=== PATIENT | male | born 1990 | race Caucasian/White ===

== ENCOUNTER 2016-05-18 20:08 | Emergency (ER) | payer OTHER ==
[2016-05-18 20:30] VITALS: O2SAT 98
[2016-05-18] MEDS ORDERED: METOCLOPRAMIDE 10 MG/2 ML VIAL IVP ONE (21:25)
[2016-05-18] MEDS ORDERED: KETOROLAC 30 MG/1 ML SDV IVP ONE (21:25)
[2016-05-18] MEDS ORDERED: NS 1,000 ML IV ONE (21:25)
--- NOTE | 2016-05-18 21:25 | EDPHY ---
H & P Time Seen by Provider: 05/18/16 20:41 HPI/ROS: Chief complaint. Headache HPI. Patient is a 25-year-old male with history of migraine headaches presents with typical migraine that began about 2 hours ago. He has visual aura that he describes as spots at onset. Subsequently he developed a headache and nausea vomiting. Denies focal weakness paresthesias. No head injury or recent illness. He says maybe from a cacao drink this evening. There is a family history of migraines in his brother has quite frequent migraines. Patient's last migraine was about 2 years ago. He denies focal weakness or paresthesias ROS Constitutional. no fever/chills, no weakness Eyes. no problems with vision ENT. no sore throat, no nasal drainage Cardiovascular. no chest pain Respiratory. no shortness of breath, no cough Abdominal. no abdominal pain, no nausea/vomiting, no diarrhea . no problems urinating MS. no calf pain/swelling, no neck/back pain, no joint pain Skin. no rash Lymph. no swollen glands Neuro. Headache Past Medical/Surgical History: Healthy though history of migraines in attention deficit hyperactivity disorder Social History: Single, daily smoker, no alcohol Smoking Status: Light smoker Physical Exam: General Appearance: Alert well-developed male moderate distress vital signs are stable Eyes: Pupils equal and round no pallor or injection. ENT, Mouth: Mucous membranes are moist. Respiratory: There are no retractions, lungs are clear to auscultation. Cardiovascular: Regular rate and rhythm. Gastrointestinal: Abdomen is soft and nontender, no masses, bowel sounds normal. Neurological: Awake and alert, sensory and motor exams grossly normal. Skin: Warm and dry, no rashes. Musculoskeletal: Neck is supple nontender. Extremities symmetrical, full range of motion. Psychiatric: Patient is oriented X 3, there is no agitation. Constitutional: Initial Vital Signs Temperature (C) 36.5 C 05/18/16 20:27 Heart Rate 56 L 05/18/16 20:27 Respiratory Rate 18 05/18/16 20:27 Blood Pressure 109/71 05/18/16 20:27 O2 Sat (%) 98 05/18/16 20:27 O2 Delivery Mode Room Air Allergies/Adverse Reactions: No Known Allergies Allergy (Verified 05/18/16 20:30) Home Medications: Medication Instructions Recorded Adderall 10 MG (*) 05/18/16 Bupropion HBr 05/18/16 Medical Decision Making Procedures: IV normal saline with 1 L given. Patient is given Toradol, Reglan, Benadryl intravenously ED Course/Re-evaluation: Re-evaluation at 10:00 p.m. and patient has no headache now. He feels well his symptoms are completely resolved. He is conversational and normal and neurologically intact. The patient and I discussed treatment plan including criteria for return importance of follow-up further evaluation. He expresses understanding and agreed Differential Diagnosis: I considered migraine, meningitis, intracranial bleeding, CVA - Data Points Medications Given: Discontinued Medications Diphenhydramine HCl (Benadryl Injection) 25 mg IVP EDNOW ONE Stop: 05/18/16 21:26 Last Admin: 05/18/16 21:46 Dose: 25 mg Sodium Chloride (Ns) 1,000 mls @ 0 mls/hr IV ONCE ONE PRN Reason: Wide Open Stop: 05/18/16 21:26 Last Admin: 05/18/16 21:47 Dose: 1,000 mls Ketorolac Tromethamine (Toradol) 30 mg IVP EDNOW ONE Stop: 05/18/16 21:26 Last Admin: 05/18/16 21:46 Dose: 30 mg Metoclopramide HCl (Reglan Injection) 10 mg IVP EDNOW ONE Stop: 05/18/16 21:26 Last Admin: 05/18/16 21:46 Dose: 10 mg Departure - Departure Disposition: Home, Routine, Self-Care Clinical Impression: Migraine headache Qualifiers: Migraine type: with aura Status migrainosus presence: without status migrainosus Intractability: not intractable Qualified Code(s): G43.109 - Migraine with aura, not intractable, without status migrainosus Condition: Good Instructions: Migraine Headache (ED) Additional Instructions: Return for worsening symptoms. Follow up with [facility] for further management of your migraines Referrals: DR MATTHEW [Other] - As per Instructions
[2016-05-18 21:48] VITALS: PULSE 69; RESP 16; TEMP 97.9
[2016-05-18 22:12] VITALS: BP 108/59
== END 2016-05-18 22:11 | disposition home or self-care (01) ==
DX: G43.109 Migraine with aura, not intractable, without status migrainosus (principal); F17.200 Nicotine dependence, unspecified, uncomplicated
CPT/HCPCS: 96374; J1200; J1885; J2765

== ENCOUNTER 2016-07-13 20:16 | Emergency (ER) | payer OTHER ==
--- NOTE | 2016-07-13 21:52 | EDPHY ---
H & P Smoking Status: Light smoker Time Seen by Provider: 07/13/16 21:40 HPI/ROS: CHIEF COMPLAINT: Dental pain HISTORY OF PRESENT ILLNESS: 25-year-old male presents to the emergency department with left lower dental pain that began abruptly this evening. The patient states that he lost part of the filling and developed severe pain. He denies any other known trauma or injury. He denies dysphagia. Denies facial swelling. He has taken ibuprofen without relief. He does not have a dentist. ROS: Denies dysphagia, facial swelling, fevers, chills, sublingual swelling. ( Tamera Lomas) Past Medical/Surgical History: Migraine headaches, attention deficit hyperactivity disorder (Tamera Lomas) Social History: Single (Tamera Lomas) Physical Exam: On examination patient has no facial swelling. Afebrile and nontoxic-appearing. Teeth appear to be in good repair. His left lower 1st molar has an amalgam filling the that is broken off. No gingival or buccal mucosal swelling. No evidence of abscess. No sublingual swelling. No facial swelling. Neck is supple without lymphadenopathy. (Tamera Lomas) Constitutional: Initial Vital Signs Heart Rate 102 H 07/13/16 20:18 Respiratory Rate 19 07/13/16 20:18 Blood Pressure 131/92 H 07/13/16 20:18 O2 Sat (%) 97 07/13/16 20:18 O2 Delivery Mode Room Air Allergies/Adverse Reactions: No Known Allergies Allergy (Verified 05/18/16 20:30) Home Medications: Medication Instructions Recorded Adderall 10 MG (*) 05/18/16 Bupropion HBr 05/18/16 Penicillin V Potassium 500 mg PO TID #30 tablet 07/13/16 MDM/Departure - MDM Medications Given: Discontinued Medications Hydrocodone Bitart/Acetaminophen ([place] 5/325mg Prepack#6) 1 btl TAKEHOME EDNOW ONE Stop: 07/13/16 21:56 Last Admin: 07/13/16 22:02 Dose: 1 btl Penicillin V Potassium (Pen Vk 250 Mg Prepack#6) 1 btl TAKEHOME EDNOW ONE PRN Reason: Protocol Stop: 07/13/16 21:56 Last Admin: 07/13/16 22:07 Dose: 1 btl ED Course/Re-evaluation: 25-year-old male presents to the emergency department with dental pain. Clinically I think this patient just has a fractured filling. No evidence of abscess. He will be started on penicillin. He was given hydrocodone take-home pack for severe pain. He was instructed follow up with a dentist as soon as possible. (Tamera Lomas) The patient was evaluated and managed by the physician assistant grocery. I have reviewed this chart and I agree with the findings and plan of care as documented , as indicated by my signature. I am the secondary supervising physician. ( Loulou Lozano) - Depart Disposition: Home, Routine, Self-Care Clinical Impression: Pain, dental Condition: Good Instructions: Penicillin V (By mouth), Hydrocodone/Acetaminophen (By mouth), Toothache (ED) Additional Instructions: Penicillin 3 times daily for 10 days to prevent infection. Ibuprofen 600 mg every 8 hours as needed for pain. Hydrocodone for severe pain as directed. Follow up with a dentist as soon as possible. Prescriptions: Penicillin V Potassium 500 mg PO TID #30 tablet Referrals: [facility] [Outside] - As per Instructions [facility] [Outside] - As per Instructions [facility] [Outside] - As per Instructions Dental [address] [Outside] - As per Instructions Dental [facility] [Outside] - As per Instructions
[2016-07-13] MEDS ORDERED: PENICILLIN VK 250MG PREPACK#6 BTL TAKEHOME ONE (21:55)
[2016-07-13] MEDS ORDERED: HYDROCOD/APAP 5/325 PREPACK#6 BTL TAKEHOME ONE (21:55)
[2016-07-13 22:20] VITALS: BP 104/84; PULSE 60; RESP 17; TEMP 98.8; O2SAT 95
== END 2016-07-13 22:20 | disposition home or self-care (01) ==
DX: K08.89 Other specified disorders of teeth and supporting structures (principal); F17.200 Nicotine dependence, unspecified, uncomplicated

== ENCOUNTER 2017-05-16 01:56 | Emergency (ER) | payer OTHER ==
[2017-05-16 02:04] VITALS: BP 107/66; PULSE 93; RESP 16; TEMP 98.1; O2SAT 95
--- NOTE | 2017-05-16 02:07 | EDPHY ---
H & P Stated Complaint: skin on scrotum is peeling Time Seen by Provider: 05/16/17 02:00 HPI/ROS: HPI CHIEF COMPLAINT: Skin peeling on the scrotum x2 weeks HISTORY OF PRESENT ILLNESS: This patient is a 26-year-old male, he is otherwise healthy denies any significant medical history however did have remote history 2 years ago of a varicocele surgery. He believes to be a left side. Patient presents emergency room with 2 weeks of dry skin to his scrotum and skin peeling. Decided come to the emergency room tonight as the skin was cracking and some bleeding occurred and he became concerned. He denies any significant testicular pain. He has been putting a large amount of lotion on it. Denies trauma to his scrotum or scrotal or testicular trauma. Denies fever. Denies urinary symptoms. Denies STD exposure. Past Medical History: No significant medical history Past Surgical History: Surgical history consistent for varicella surgery Social History: Denies drugs alcohol tobacco. Family History: Noncontributory ROS REVIEW OF SYSTEMS: A comprehensive 10 point review of systems is otherwise negative aside from elements mentioned in the history of present illness. Exam Constitutional triage nursing summary reviewed, vital signs reviewed, awake/ alert. Eyes normal conjunctivae and sclera, EOMI, PERRLA. HENT normal inspection, atraumatic, moist mucus membranes, no epistaxis, neck supple/ no meningismus, no raccoon eyes. Respiratory clear to auscultation bilaterally, normal breath sounds, no respiratory distress, no wheezing. Cardiovascular rate normal, regular rhythm, no murmur, no edema, distal pulses normal. Gastrointestinal soft, non-tender, no rebound, no guarding, normal bowel sounds, no distension, no pulsatile mass. Genitourinary exam: ALENA RN at bedside, no testicular pain on palpation, left testicle rides low, right testicle is higher up, the scrotum skin does not show any signs of cellulitis or infection that I can see, there is extensive dry skin to the scrotum, and the lower aspect of the scrotum is thickened. Cracked. Musculoskeletal no midline vertebral tenderness, full range of motion, no calf swelling, no tenderness of extremities, no meningismus, good pulses, neurovascularly intact. Skin pink, warm, & dry, no rash, skin atraumatic. Neurologic awake, alert and oriented x 3, AAOx3, moves all 4 extremities equally, motor intact, sensory intact, CN II-XII intact, normal cerebellar, normal vision, normal speech. Psychiatric normal mood/affect. Heme/Lymph/Immune no lymphadenopathy. Differential Diagnosis: Includes but is not limited to scrotum cellulitis, dry screen of the scrotum, abnormal thickened skin of the scrotum, testicular cancer Medical Decision Making: Plan for this patient ultrasound of the scrotum to evaluate this area. Additionally check UA. Re-evaluate. Re-evaluation: [id number]: Ultrasound of the scrotum shows normal testicle blood flow. No evidence of torsion. There is an area of thickened skin of the scrotum where this area of concern is a could be cellulitis. Will place on Keflex and Bactrim for scrotal cellulitis. There is no evidence of Bubba gangrene at this time. I do recommend he follows up closely with his primary care doctor or Urology. Urology referral given. 1st dose of Keflex and Bactrim given in emergency room. There is no abscess seen on the ultrasound. Recommend completing course of antibiotics Keflex and Bactrim. Warm compresses. Return precautions discussed. He understands return emergency room if develops worsening pain, fever, swelling questions or concerns. Source: Patient - Personal History Current Tetanus/Diphtheria Vaccine: Yes Current Tetanus Diphtheria and Acellular Pertussis (TDAP): Yes Tetanus Vaccine Date: <10 years - Medical/Surgical History Hx Asthma: No Hx Chronic Respiratory Disease: No Hx Diabetes: No Hx Cardiac Disease: No Hx Renal Disease: No Hx Cirrhosis: No Hx Alcoholism: No Hx HIV/AIDS: No Hx Splenectomy or Spleen Trauma: No Other PMH: migraines, adhd. varicose vein surg - Social History Smoking Status: Former smoker Constitutional: Initial Vital Signs Temperature (C) 36.7 C 05/16/17 01:59 Heart Rate 93 05/16/17 01:59 Respiratory Rate 16 05/16/17 01:59 Blood Pressure 107/66 05/16/17 01:59 O2 Sat (%) 95 05/16/17 01:59 O2 Delivery Mode Room Air Allergies/Adverse Reactions: No Known Allergies Allergy (Verified 05/16/17 02:04) Home Medications: Medication Instructions Recorded Adderall 10 MG (*) 05/18/16 Cephalexin [Keflex] 500 mg PO Q6H #28 cap 05/16/17 Sulfamethox/Tmp 800/160 mg 1 tab PO BID@1000,2200 #14 tab 05/16/17 [Bactrim Ds] Medical Decision Making - Data Points Laboratory Results: 05/16/17 02:20 Urine Color YELLOW Urine Appearance CLEAR Urine pH 5.0 (5.0-7.5) Ur Specific [place] 1.033 H (1.002-1.030) Urine Protein 1+ H (NEGATIVE) Urine Ketones TRACE H (NEGATIVE) Urine Blood NEGATIVE (NEGATIVE) Urine Nitrate NEGATIVE (NEGATIVE) Urine Bilirubin NEGATIVE (NEGATIVE) Urine Urobilinogen NEGATIVE EU EU (0.2-1.0) Ur Leukocyte Esterase NEGATIVE (NEGATIVE) Urine RBC 1-3 /hpf /hpf (0-3) Urine WBC 1-3 /hpf /hpf (0-3) Ur Epithelial Cells TRACE /lpf /lpf (NONE-1+) Urine Mucus 2+ /lpf H /lpf (NONE-1+) Urine Glucose NEGATIVE (NEGATIVE) Departure - Departure Disposition: Home, Routine, Self-Care Clinical Impression: Cellulitis of scrotum Cellulitis Qualifiers: Site of cellulitis: unspecified site Qualified Code(s): L03.90 - Cellulitis, unspecified Condition: Good Instructions: Cellulitis (ED) Additional Instructions: 1. Warm compresses and warm soaks. 2. Antibiotics as prescribed. 3. Follow up with Urology. 4. Return emergency room if develops worsening symptoms includes worsening pain , fever, questions or concerns. Referrals: NONE *PRIMARY CARE P,. [Primary Care Provider] - As per Instructions Rob Moon MD [Medical Doctor] - As per Instructions Prescriptions: Cephalexin [Keflex] 500 mg PO Q6H #28 cap Sulfamethox/Tmp 800/160 mg [Bactrim Ds] 1 tab PO BID@1000,2200 #14 tab
[2017-05-16] MEDS ORDERED: LIDOCAINE 2% JELLY 20 ML (UROJECT) ONE (02:53)
[2017-05-16] MEDS ORDERED: CEPHALEXIN 500 MG CAP PO ONE (03:04)
[2017-05-16] MEDS ORDERED: SULFAMET/TMP DS PREPACK#2 BTL TAKEHOME ONE (03:04)
[2017-05-16] MEDS ORDERED: CEPHALEXIN 500MG PREPACK#4 BTL TAKEHOME ONE (03:04)
[2017-05-16] MEDS ORDERED: SULFAMETHOX/TMP 800/160 MG 1 TAB PO ONE (03:04)
== END 2017-05-16 03:12 | disposition home or self-care (01) ==
DX: N49.2 Inflammatory disorders of scrotum (principal); Z87.891 Personal history of nicotine dependence